=== PATIENT | male | born 1950 | race Caucasian/White ===

== ENCOUNTER → 2017-04-11 | Outpatient (CLI) | payer OTHER ==
--- NOTE | 2017-04-11 13:10 | EXERCISE STRESS ECHO ---
*NOTICE TO RECEIVING CONSTITUTION PARTY AGENCY This information is strictly Confidential and protected under [place] law. [place] law prohibits you from making any further disclosure of this information unless further disclosure is expressly permitted by the written consent of the person to whom it pertains or is authorized by law. A general authorization for the release of medical or other information is not sufficient for this purpose. Hospital accepts no responsibility if the information is made available to any other person, INCLUDING THE PATIENT. Interpretation Summary * Name: MANUEL BALDERAS Study Date: 04/11/2017 08:29 AM BP: 148/75 mmHg * Patient [facility]: [facility] HR: 63 * : 1950 (M/d/yyyy) Gender: Male Height: 69 in * Age: 67 yrs Ethnicity: [place] Weight: 225 lb * Ordering Physician: Tania Dumont * Referring Physician: Tania Dumont PA-C * Performed By: Tamar Lazcano R[facility] * * Reason For Study: PVC'S * BSA: 2.2 m2 * -- Conclusions -- * The left ventricle is borderline dilated. * Left ventricular systolic function is normal. * Grade I diastolic dysfunction, (abnormal relaxation pattern). * The left atrium is mildly dilated. * There is mild mitral regurgitation. * Normal exercise echocardiogram without evidence of inducible ischemia * Hypertensive response to exercise Procedure Details * ECHOEX, CPT #[id number] * ECHO COLOR FLOW, CPT #[id number] * ECHO DOPPLER, CPT #[id number] Left Ventricular Findings with Stress * Normal exercise echocardiogram without evidence of inducible ischemia Hypertensive response to exercise Left Ventricle * The left ventricle is borderline dilated. * There is normal left ventricular wall thickness. * Left ventricular systolic function is normal. * Grade I diastolic dysfunction, (abnormal relaxation pattern). * Ejection Fraction = 50-55%. * The left ventricular wall motion is normal at rest. Right Ventricle * The right ventricle is normal in size and function. Atria * The left atrium is mildly dilated. * Right atrial size is normal. Mitral Valve * The mitral valve is grossly normal. * There is mild mitral regurgitation. Tricuspid Valve * The tricuspid valve is not well visualized, but is grossly normal. * Significant tricuspid regurgitation is absent. Aortic Valve * The aortic valve is normal in structure and function. * The aortic valve is trileaflet. * No hemodynamically significant valvular aortic stenosis. * There is no significant aortic regurgitation. Great Vessels * The aortic root is normal size. Pericardium * There is no pericardial effusion. Stress Parameters * Normal baseline electrocardiogram. * Stress ECG: No ST changes. No arrhythmias. * The stress portion of this study was personally supervised by the undersigned interpreting physician. * Rest heart rate was '63' BPM. * Rest blood pressure was '148/75' * Maximum heart rate achieved was 162 bpm. * Maximum heart rate was 106 % of maximum age-predicted heart rate. * Maximum blood pressure was '203/59' * Total exercise time was '08:59' * Maximum exercise MET level achieved was '10.10' METS * Maximum treadmill speed was '3.40' miles per hour. * Maximum treadmill elevation was '14.00'% grade. Left Ventricular Findings with Stress * Baseline EKG was normal There were no significant ST or T-wave changes with exercise or recovery Baseline echocardiogram was normal There was normal augmentation of all segments without development of wall motion abnormalities at peak exertion No symptoms reported Hypertensive response to exercise Hernandez treadmill score: 9 (low risk) MMode 2D Measurements and Calculations IVSd 1.3 cm IVSs 1.6 cm LVIDd 5.9 cm LVIDs 4.3 cm LVPWd 1.0 cm LVPWs 1.4 cm IVS/LVPW 1.3 FS 25.9 % EDV(Teich) 171.1 ml ESV(Teich) 85.3 ml EF(Teich) 50.1 % EDV(cubed) 202.1 ml ESV(cubed) 82.3 ml EF(cubed) 59.3 % % IVS thick 22.3 % % LVPW thick 41.4 % LV mass(C)d 295.4 grams LV mass(C)dI 136.0 grams/m\S\2 LV mass(C)s 273.0 grams LV mass(C)sI 125.7 grams/m\S\2 SV(Teich) 85.8 ml SI(Teich) 39.5 ml/m\S\2 SV(cubed) 119.8 ml SI(cubed) 55.2 ml/m\S\2 Ao root diam 3.4 cm Ao root area 9.2 cm\S\2 LA dimension 4.4 cm LA/Ao 1.3 LVOT diam 2.0 cm LVOT area 3.2 cm\S\2 LVAd ap4 38.5 cm\S\2 LVLd ap4 8.2 cm EDV(MOD-sp4) 147.1 ml EDV(sp4-el) 154.1 ml LVAs ap4 23.6 cm\S\2 LVLs ap4 6.7 cm ESV(MOD-sp4) 67.7 ml ESV(sp4-el) 70.4 ml EF(MOD-sp4) 54.0 % EF(sp4-el) 54.3 % LVAd ap2 35.0 cm\S\2 LVLd ap2 8.4 cm EDV(MOD-sp2) 118.8 ml EDV(sp2-el) 124.3 ml LVAs ap2 22.7 cm\S\2 LVLs ap2 6.6 cm ESV(MOD-sp2) 67.4 ml ESV(sp2-el) 66.4 ml EF(MOD-sp2) 43.3 % EF(sp2-el) 46.6 % LVLd %diff 2.7 % EDV(MOD-bp) 134.7 ml LVLs %diff -2.54 % ESV(MOD-bp) 68.7 ml EF(MOD-bp) 49.0 % SV(MOD-sp4) 79.4 ml SI(MOD-sp4) 36.6 ml/m\S\2 SV(MOD-sp2) 51.4 ml SI(MOD-sp2) 23.7 ml/m\S\2 SV(MOD-bp) 66.0 ml SI(MOD-bp) 30.4 ml/m\S\2 SV(sp4-el) 83.7 ml SI(sp4-el) 38.5 ml/m\S\2 SV(sp2-el) 57.9 ml SI(sp2-el) 26.6 ml/m\S\2 Doppler Measurements and Calculations MV E max erich 49.1 cm/sec MV A max erich 71.7 cm/sec MV E/A 0.68 MV P1/2t max erich 67.3 cm/sec MV P1/2t 128.8 msec MVA(P1/2t) 1.7 cm\S\2 MV dec slope 153.0 cm/sec\S\2 MV dec time 0.29 sec Ao V2 max 114.3 cm/sec Ao max PG 5.2 mmHg Ao max PG (full) 3.2 mmHg ANIA(V,A) 2.0 cm\S\2 ANIA(V,D) 2.0 cm\S\2 LV V1 max PG 2.1 mmHg LV V1 max 72.0 cm/sec MR max erich 614.4 cm/sec MR max PG 151.0 mmHg PA V2 max 119.9 cm/sec PA max PG 5.8 mmHg
== END | disposition home or self-care (01) ==
LOC: C.CPL 08:05
PROVIDERS: ATTEND Physician Assistant
DX: I49.3 Ventricular premature depolarization (principal)